=== PATIENT | female | born 1980 | race Native Hawaiian/Other Pacific Islander ===

== ENCOUNTER 2019-01-17 08:41 | Outpatient (CLI) | payer BC | END 2019-01-17 23:49 | disposition home or self-care (01) | LOC: CT 08:41 | DX: R51 Headache (principal) ==

== ENCOUNTER 2019-10-11 09:04 | Outpatient (CLI) | payer BC | END 2019-10-11 22:25 | disposition home or self-care (01) | LOC: MAMMO 09:04 | DX: Z12.31 Encounter for screening mammogram for malignant neoplasm of breast (principal) ==

== ENCOUNTER 2019-10-26 12:37 | Outpatient (CLI) | payer BC | END 2019-10-26 20:18 | disposition home or self-care (01) | LOC: MAMMO 12:37 | DX: N63.20 Unspecified lump in the left breast, unspecified quadrant (principal) ==

== ENCOUNTER 2020-10-15 08:07 | Outpatient (CLI) | payer BC | END 2020-10-15 22:22 | disposition home or self-care (01) | LOC: MAMMO 08:07 | PROVIDERS: ATTEND Obstetrics & Gynecology | DX: Z12.31 Encounter for screening mammogram for malignant neoplasm of breast (principal) ==

== ENCOUNTER 2022-11-20 08:22 | Outpatient (CLI) | payer BC | END 2022-11-20 19:51 | disposition home or self-care (01) | LOC: MAMMO 08:22 | PROVIDERS: ATTEND Obstetrics & Gynecology | DX: Z12.31 Encounter for screening mammogram for malignant neoplasm of breast (principal) ==